=== PATIENT | female | born 1995 | race Caucasian/White ===

== ENCOUNTER 2016-03-06 20:23 | Emergency (ER) | payer BC ==
[~2016-03-06] VITALS: Ht 165.1 cm; Wt 61.0 kg
[~2016-03-06 20:23] MED LIST: FIORINAL2 PO; IMIT100T PO; ZOFR8TAB PO
[2016-03-06 20:26] VITALS: BP 134/115; PULSE 115; RESP 16; TEMP 98.9; O2SAT 97
[2016-03-06 21:18] LABS: AUTOMATED NEUTROPHIL # 2.2 TH/MM3 (1.8-7.7); BASOPHIL % 0.5 % (0.0-2.0); EOSINOPHIL # 0.1 TH/MM3 (0-0.4); EOSINOPHIL % 1.7 % (0.0-4.0); HEMO FLAGS DIFF FINAL; LYMPH % 33.8 % (9.0-44.0); LYMPHOCYTE # 1.5 TH/MM3 (1.0-4.8); MEAN CELL VOLUME 82.2 FL (80.0-100.0); MEAN CORPUSCULAR HEMOGLOBIN 28.2 PG (27.0-34.0); MEAN CORPUSCULAR HGB CONC 34.3 % (32.0-36.0); MONO % 14.5 % (0.0-8.0); NEUT % 49.5 % (16.0-70.0); PLATELET COUNT 296 TH/MM3 (150-450); RED BLOOD COUNT 4.62 MIL/MM3 (4.00-5.30); RED CELL DISTRIBUTION WIDTH 13.1 % (11.6-17.2); WHITE BLOOD COUNT 4.4 TH/MM3 (4.0-11.0)
[2016-03-06 22:02] LABS: ANION GAP 8 MEQ/L (5-15); BICARBONATE 24.6 MEQ/L (21.0-32.0); BLOOD UREA NITROGEN 7 MG/DL (7-18); CHLORIDE 105 MEQ/L (98-107); GLOMERULAR FILTRATION RATE 89 ML/MIN (>89); POTASSIUM 3.4 MEQ/L (3.5-5.1); SODIUM (NA) 138 MEQ/L (136-145)
[2016-03-06 22:16] LABS: CREATINE KINASE 69 U/L (26-192)
[2016-03-06] MEDS ORDERED: METOCLOPRAMIDE HCL 10 MG/2 ML VIAL IVP ONE (22:45)
[2016-03-06] MEDS ORDERED: SODIUM CHLOR 0.9% 1000 ML INJ 1,000 ML IV ONE (22:45)
[2016-03-06] MEDS ORDERED: diphenhydrAMINE HCL 50 MG/ML VIAL IVP ONE (22:45)
[2016-03-06] MEDS ORDERED: ACETAMINOPHEN 325 MG TAB PO ONE (22:45)
--- NOTE | 2016-03-06 22:50 | PD ---
HPI Chief Complaint: Chest Pain Time Seen by Provider: 22:40 Travel History International Travel<30 days: Yes Contact w/Intl Traveler<30days: Yes Name of Country Traveled to: [facility] Traveled to known affect area: No History of Present Illness HPI This is a 20-year-old female with a history of migraines. She presents for evaluation of chest pain. She reports that she started having a typical migraine yesterday evening which she describes as a right-sided frontal throbbing headache with associated nausea. She took Fiorinal month asleep. The migraine persisted today and she took Excedrin in the migraine has persisted since then. She reports that now for the past 6 hours she has had a chest pain. She describes it as a sharp midsternal chest pain that is reproduced with movement, coughing and inspiration. She has developed a cough today with a small amount of yellow mucus production. Had nausea secondary to the migraine. She has had no abdominal pain, fevers or chills, calf swelling, hemoptysis. She is on oral contraceptives. She also says that she recently traveled back from the [facility] by plane 3 days ago. No rash, No fevers. No other complaints. PFSH Past Medical History ?: Not LMP: 3 WKS AGO Social History Alcohol Use: No Tobacco Use: No Substance Use: No Allergies-Medications (Allergen,Severity, Reaction): Coded Allergies: Latex (Verified Allergy, Severe, hives, 03/06/16) Reported Meds & Prescriptions Reported Meds & Active Scripts Active Reported Zofran Tab (Ondansetron HCl) 8 Mg Tab 8 Mg PO BID Fiorinal (Butalbital/Aspirin/Caffeine) Cap 1 Tab PO Q6H PRN Imitrex (Sumatriptan Succinate) 100 Mg Tab 100 Mg PO DAILY PRN Review of Systems Except as stated in HPI: all other systems reviewed are Neg Physical Exam Narrative GENERAL: Well-developed well-nourished female in no acute distress SKIN: Warm and dry. No rash HEAD: Atraumatic. Normocephalic. EYES: Pupils equal and round. No scleral icterus. No injection or drainage. ENT: No nasal bleeding or discharge. Mucous membranes pink and moist. NECK: Trachea midline. No JVD. CARDIOVASCULAR: Regular rate and rhythm. No murmur appreciated. RESPIRATORY: No accessory muscle use. Clear to auscultation. Breath sounds equal bilaterally. No crackles no wheezing no rhonchi GASTROINTESTINAL: Abdomen soft, non-tender, nondistended. Hepatic and splenic margins not palpable. MUSCULOSKELETAL: No obvious deformities. No lower extremity edema, negative Homans. There is some reproducible tenderness to palpation along the upper chest wall. NEUROLOGICAL: Awake and alert. No obvious cranial nerve deficits. Motor grossly within normal limits. Normal speech. Data Data Last Documented VS Vital Signs Date Time Temp Pulse Resp B/P Pulse Ox O2 Delivery O2 Flow Rate FiO2 03/06/16 23:00 Room Air 03/06/16 20:26 98.9 115 16 134/115 97 Orders Electrocardiogram (03/06/16 20:37) Complete Blood Count With Diff (03/06/16 20:37) Basic Metabolic Panel (Bmp) (03/06/16 20:37) Ckmb (Isoenzyme) Profile (03/06/16 20:37) Troponin I (03/06/16 20:37) Acetaminophen (Tylenol) (03/06/16 22:45) Metoclopramide Inj (Reglan Inj) (03/06/16 22:45) Sodium Chlor 0.9% 1000 Ml Inj (Ns 1000 M (03/06/16 22:45) D-Dimer (03/06/16 22:45) Ed Urine Pregnancytest Poc (03/06/16 22:45) Chest, Single Ap (03/06/16 ) Diphenhydramine Inj (Benadryl Inj) (03/06/16 22:45) Potassium Chloride (Kcl) (03/07/16 00:15) Labs Laboratory Tests Test 03/06/16 03/06/16 20:50 23:00 White Blood Count 4.4 TH/MM3 Red Blood Count 4.62 MIL/MM3 Hemoglobin 13.0 GM/DL Hematocrit 38.0 % Mean Corpuscular Volume 82.2 FL Mean Corpuscular Hemoglobin 28.2 PG Mean Corpuscular Hemoglobin 34.3 % Concent Red Cell Distribution Width 13.1 % Platelet Count 296 TH/MM3 Mean Platelet Volume 7.2 FL Neutrophils (%) (Auto) 49.5 % Lymphocytes (%) (Auto) 33.8 % Monocytes (%) (Auto) 14.5 % Eosinophils (%) (Auto) 1.7 % Basophils (%) (Auto) 0.5 % Neutrophils # (Auto) 2.2 TH/MM3 Lymphocytes # (Auto) 1.5 TH/MM3 Monocytes # (Auto) 0.6 TH/MM3 Eosinophils # (Auto) 0.1 TH/MM3 Basophils # (Auto) 0.0 TH/MM3 CBC Comment DIFF FINAL Differential Comment Sodium Level 138 MEQ/L Potassium Level 3.4 MEQ/L Chloride Level 105 MEQ/L Carbon Dioxide Level 24.6 MEQ/L Anion Gap 8 MEQ/L Blood Urea Nitrogen 7 MG/DL Creatinine 0.82 MG/DL Estimat Glomerular Filtration 89 ML/MIN Rate Random Glucose 98 MG/DL Calcium Level 9.0 MG/DL Total Creatine Kinase 69 U/L Troponin I LESS THAN 0.02 NG/ML D-Dimer Quantitative (PE/DVT) 0.20 MG/L [facility] Medical Decision Making Medical Screen Exam Complete: Yes Emergency Medical Condition: Yes Medical Record Reviewed: Yes Interpretation(s) ekg nsr CBC unremarkable D-dimer negative BMP potassium 3.4 otherwise unremarkable Negative CK, troponin Chest x-ray within normal limits Urine test negative Differential Diagnosis Bronchitis, costochondritis, pneumonia, pneumothorax, pulmonary embolism, migraine Narrative Course 20-year-old female who is having a typical migraine which is a right-sided throbbing headache with associated nausea. Her migraine is unrelieved with over -the-counter Excedrin as well as with Fiorinal. In addition she developed right -sided chest pain today which is a sharp pain that is reproduced with movement and inspiration, cough. She was tachycardic in triage and she is on oral contraceptives and recently traveled here from the [facility]. Therefore d-dimer has been ordered. The patient will be given a migraine cocktail through an IV. Lab work ordered in triage was unremarkable. 0008: The patient's lab work has been reviewed and is unremarkable, negative d- dimer. Upon reexamination the patient's headache has resolved. The patient's potassium was mildly low at 3.4, she will be given oral potassium chloride. She appears to have chest wall pain and a migraine. She is stable for discharge. Diagnosis Primary Impression: Migraine Qualified Code: G43.909 - Migraine without status migrainosus, not intractable , unspecified migraine type Additional Impression: Chest pain Qualified Code: R07.9 - Chest pain, unspecified type Additional Instructions: Stay well-hydrated and well-nourished, get plenty of rest. Follow-up with primary care. Return for any emergent medical conditions. Med/Other Pt SpecificInfo: No Change to Meds Disposition: 01 DISCHARGE HOME Condition: Stable Perfecto Aquino Mar 06, 2016 22:50
--- NOTE | 2016-03-06 23:08 | RADRPT ---
EXAM DATE/TIME: 03/06/2016 22:55 [facility] COMPARISON: No previous studies available for comparison. INDICATIONS : Shortness of breath. MEDICAL HISTORY : None. SURGICAL HISTORY : None. ENCOUNTER: Initial ACUITY: 1 day PAIN SCORE: 0/10 LOCATION: Bilateral chest FINDINGS: A single view of the chest demonstrates the lungs to be symmetrically aerated without evidence of mas s, infiltrate or effusion. The cardiomediastinal contours are unremarkable. Osseous structures are intact. CONCLUSION: No acute disease. Nash Chandler MD on March 06, 2016 at 23:07 Board Certified Radiologist. This report was verified electronically.
[2016-03-07] MEDS ORDERED: POTASSIUM CHLORIDE 20 MEQ CONTROLLED RELEASE TAB PO ONE (00:15)
--- NOTE | 2016-03-07 12:31 | EKG ---
Date Performed: 03/06/2016 Time Performed: 20:58:10 PTAGE: 20 years EKG: Sinus rhythm WITH SINUS ARRHYTHMIA NONSPECIFIC ST ABNORMALITY BORDERLINE ECG NO PREVIOUS TRACING DOCTOR: Shekhar Flores Interpretating Date/Time 03/07/2016 12:29:56
== END 2016-03-07 00:20 | disposition home or self-care (01) ==
LOC: NEPB 20:23
DX: G43.909 Migraine, unspecified, not intractable, without status migrainosus (principal); R94.31 Abnormal electrocardiogram [ECG] [EKG]; R07.9 Chest pain, unspecified; R05 Cough
CPT/HCPCS: 71010; 80048; 82550; 84484; 84703; 85025; 85379; 93005; 96374; 96375; 99285; J1200; J2765; J7030